=== PATIENT | male | born 1935 | race Caucasian/White ===

== ENCOUNTER 2021-02-16 20:01 | Inpatient (IN) | payer OTHER ==
[~2021-02-16] VITALS: Ht 173 cm; Wt 76.0 kg
[2021-02-16 20:03] VITALS: BP 155/78
[2021-02-16 20:33] LABS: BASO % 0.3 % (0.0-1.0); EOS # 0.1 10*3/uL (0.0-0.4); EOS % 0.8 % (1.0-4.0); HEMATOCRIT 45.9 % (42.0-52.0); LYMPH # 1.3 10*3/uL (1.3-4.4); LYMPH % 12.3 % (27.0-41.0); MEAN CELL VOLUME 90.4 fl (80.0-94.0); MEAN CORPUSCULAR HGB 29.1 pg (27.0-31.0); MEAN CORPUSCULAR HGB CONC 32.2 g/dl (33.0-37.0); MEAN PLATELET VOLUME 10.9 fl (9.6-12.3); MONO # 0.9 10*3/uL (0.1-1.0); MONO % 8.7 % (3.0-9.0); NEUT # 8.1 10*3/uL (2.3-7.9); NEUT % 77.5 % (47.0-73.0); PLATELET COUNT AUTOMATED 194 10*3/uL (130-400); RED BLOOD COUNT 5.08 10*6/uL (4.50-5.90); WHITE BLOOD COUNT 10.5 10*3/uL (4.8-10.8)
[2021-02-16 20:48] LABS: ALBUMIN 3.4 gm/dl (3.1-4.5); ALKALINE PHOSPHATASE 91 U/L (45-117); BUN 36 mg/dl (7-24); CHLORIDE 111 mmol/L (98-107); CREATININE 1.34 mg/dL (0.70-1.30); POTASSIUM 3.9 mmol/L (3.5-5.1); SGOT/AST 16 IU/L (3-35); SGPT/ALT 21 U/L (12-78); SODIUM 140 mmol/L (136-145); TOTAL PROTEIN 7.1 gm/dL (6.4-8.2)
[2021-02-16] MEDS ORDERED: HYDROCHLOROTHIA25 M1 PO (23:32)
[2021-02-16] MEDS ORDERED: COZAAR100 MG PO (23:33)
[2021-02-16] MEDS ORDERED: ZETIA10 MG PO (23:33)
[2021-02-16] MEDS ORDERED: PRAVASTATIN SOD40 MG PO (23:34)
[2021-02-16] MEDS ORDERED: DORZOLAMIDE HYD10 ML OP (23:34)
[2021-02-17] VITALS (7 sets, daily range): BP systolic 107–158; BP diastolic 44–82
[2021-02-17 00:32] LABS: CPK 99 U/L (39-308); LDH 161 U/L (87-241)
[2021-02-17 05:10] LABS: ALBUMIN 3.1 gm/dl (3.1-4.5); ALKALINE PHOSPHATASE 80 U/L (45-117); BUN 32 mg/dl (7-24); CHLORIDE 112 mmol/L (98-107); CREATININE 1.28 mg/dL (0.70-1.30); POTASSIUM 4.2 mmol/L (3.5-5.1); SGOT/AST 15 IU/L (3-35); SODIUM 139 mmol/L (136-145); TOTAL PROTEIN 6.5 gm/dL (6.4-8.2)
[2021-02-17 05:11] LABS: ACT PARTIAL THROMBO TIME 33.7 SECONDS (20.0-32.1); SGPT/ALT 15 U/L (12-78)
[2021-02-17 05:16] LABS: THYROID STIM HORMONE (HS) 0.831 uIU/ml (0.358-4.75)
[2021-02-17 06:37] LABS: BASO % 0.1 % (0.0-1.0); HEMATOCRIT 44.4 % (42.0-52.0); LYMPH # 1.1 10*3/uL (1.3-4.4); LYMPH % 9.8 % (27.0-41.0); MEAN CELL VOLUME 92.1 fl (80.0-94.0); MEAN CORPUSCULAR HGB CONC 31.5 g/dl (33.0-37.0); MEAN PLATELET VOLUME 11.5 fl (9.6-12.3); MONO # 0.6 10*3/uL (0.1-1.0); MONO % 5.1 % (3.0-9.0); NEUT # 9.8 10*3/uL (2.3-7.9); NEUT % 84.7 % (47.0-73.0); PLATELET COUNT AUTOMATED 194 10*3/uL (130-400); RED BLOOD COUNT 4.82 10*6/uL (4.50-5.90); RED CELL DISTRI WIDTH 14.2 % (0-14.5); WHITE BLOOD COUNT 11.6 10*3/uL (4.8-10.8)
[2021-02-18] VITALS: BP 154/72
[2021-02-18 07:30] LABS: BILIRUBIN Negative (Negative); BLOOD 1+ (Negative); CLARITY Clear (Clear); COLOR Yellow (Yellow); GLUCOSE Negative (Negative); KETONE Negative (Negative); LEUKO ESTERASE Negative (Negative); NITRITE Negative (Negative); SPECIFIC GRAVITY >= 1.030 (1.001-1.030); UROBILINOGEN 0.2 E.U./dl (0.0-1.0)
[2021-02-18 07:32] LABS: BASO % 0.2 % (0.0-1.0); EOS % 0.1 % (1.0-4.0); HEMATOCRIT 43.9 % (42.0-52.0); LYMPH # 2.2 10*3/uL (1.3-4.4); LYMPH % 18.5 % (27.0-41.0); MEAN CORPUSCULAR HGB 28.8 pg (27.0-31.0); MEAN PLATELET VOLUME 11.4 fl (9.6-12.3); MONO # 1.1 10*3/uL (0.1-1.0); MONO % 8.8 % (3.0-9.0); NEUT # 8.7 10*3/uL (2.3-7.9); PLATELET COUNT AUTOMATED 201 10*3/uL (130-400); RED BLOOD COUNT 4.72 10*6/uL (4.50-5.90); RED CELL DISTRI WIDTH 14.2 % (0-14.5); WHITE BLOOD COUNT 12.1 10*3/uL (4.8-10.8)
[2021-02-18 07:47] LABS: CREATININE 1.41 mg/dL (0.70-1.30); POTASSIUM 4.1 mmol/L (3.5-5.1); TOTAL PROTEIN 6.7 gm/dL (6.4-8.2)
[2021-02-18 08:00] VITALS: BP 141/80
[2021-02-18 08:03] LABS: BACTERIA 3+
[2021-02-18 12:00] VITALS: BP 134/62
[2021-02-18 16:00] VITALS: BP 157/63
[2021-02-18 20:00] VITALS: BP 143/55; BP 161/74
[2021-02-19] VITALS: BP 153/65
[2021-02-19 06:14] LABS: ALKALINE PHOSPHATASE 67 U/L (45-117); BUN 39 mg/dl (7-24); CHLORIDE 112 mmol/L (98-107); CREATININE 1.24 mg/dL (0.70-1.30); SGOT/AST 27 IU/L (3-35); SGPT/ALT 26 U/L (12-78); SODIUM 142 mmol/L (136-145); TOTAL PROTEIN 6.4 gm/dL (6.4-8.2)
[2021-02-19 06:20] LABS: BASO % 0.1 % (0.0-1.0); HEMATOCRIT 41.2 % (42.0-52.0); LYMPH # 1.9 10*3/uL (1.3-4.4); LYMPH % 20.7 % (27.0-41.0); MEAN CELL VOLUME 90.5 fl (80.0-94.0); MEAN CORPUSCULAR HGB 29.2 pg (27.0-31.0); MEAN CORPUSCULAR HGB CONC 32.3 g/dl (33.0-37.0); MEAN PLATELET VOLUME 11.4 fl (9.6-12.3); MONO # 0.7 10*3/uL (0.1-1.0); MONO % 7.3 % (3.0-9.0); NEUT # 6.6 10*3/uL (2.3-7.9); NEUT % 71.5 % (47.0-73.0); PLATELET COUNT AUTOMATED 203 10*3/uL (130-400); RED BLOOD COUNT 4.55 10*6/uL (4.50-5.90); RED CELL DISTRI WIDTH 14.2 % (0-14.5); WHITE BLOOD COUNT 9.2 10*3/uL (4.8-10.8)
[2021-02-19 08:00] VITALS: BP 149/61
[2021-02-19 12:00] VITALS: BP 143/61
[2021-02-19 16:00] VITALS: BP 165/74
[2021-02-19 20:00] VITALS: BP 146/68
[2021-02-20] VITALS: BP 157/68
[2021-02-20 06:58] LABS: BASO % 0.1 % (0.0-1.0); HEMATOCRIT 43.5 % (42.0-52.0); LYMPH # 1.4 10*3/uL (1.3-4.4); LYMPH % 17.2 % (27.0-41.0); MEAN CELL VOLUME 92.9 fl (80.0-94.0); MEAN CORPUSCULAR HGB 28.8 pg (27.0-31.0); MEAN PLATELET VOLUME 11.5 fl (9.6-12.3); MONO # 0.2 10*3/uL (0.1-1.0); MONO % 2.7 % (3.0-9.0); NEUT # 6.4 10*3/uL (2.3-7.9); NEUT % 79.3 % (47.0-73.0); PLATELET COUNT AUTOMATED 220 10*3/uL (130-400); RED BLOOD COUNT 4.68 10*6/uL (4.50-5.90); RED CELL DISTRI WIDTH 14.1 % (0-14.5); WHITE BLOOD COUNT 8.1 10*3/uL (4.8-10.8)
[2021-02-20 07:16] LABS: CHLORIDE 113 mmol/L (98-107); CREATININE 1.23 mg/dL (0.70-1.30); POTASSIUM 4.6 mmol/L (3.5-5.1); SODIUM 143 mmol/L (136-145)
[2021-02-20 07:32] LABS: BUN 37 mg/dl (7-24); CHOLESTEROL 129 mg/dL (<200); LDL CHOLESTEROL 69 mg/dL (9-159)
[2021-02-20 07:39] LABS: TRIGLYCERIDES 114 mg/dl (<150)
[2021-02-20 08:00] VITALS: BP 100/69
[2021-02-20 09:45] VITALS: BP 140/64
[2021-02-20 12:00] VITALS: BP 110/66
[2021-02-20 16:00] VITALS: BP 155/57
[2021-02-20 20:00] VITALS: BP 161/59
[2021-02-21 00:05] VITALS: BP 126/43
[2021-02-21 07:02] LABS: BASO % 0.2 % (0.0-1.0); HEMATOCRIT 45.1 % (42.0-52.0); LYMPH # 1.4 10*3/uL (1.3-4.4); LYMPH % 15.2 % (27.0-41.0); MEAN CELL VOLUME 90.6 fl (80.0-94.0); MEAN CORPUSCULAR HGB 28.7 pg (27.0-31.0); MEAN CORPUSCULAR HGB CONC 31.7 g/dl (33.0-37.0); MONO # 0.6 10*3/uL (0.1-1.0); NEUT # 7.1 10*3/uL (2.3-7.9); NEUT % 77.2 % (47.0-73.0); PLATELET COUNT AUTOMATED 255 10*3/uL (130-400); RED BLOOD COUNT 4.98 10*6/uL (4.50-5.90); WHITE BLOOD COUNT 9.2 10*3/uL (4.8-10.8)
[2021-02-21 07:20] LABS: POTASSIUM 4.5 mmol/L (3.5-5.1)
[2021-02-21 07:21] LABS: CREATININE 1.39 mg/dL (0.70-1.30)
[2021-02-21 08:00] VITALS: BP 160/67
[2021-02-21 12:00] VITALS: BP 153/83
[2021-02-21 16:00] VITALS: BP 98/40
[2021-02-21 20:45] VITALS: BP 145/81
[2021-02-22] VITALS (9 sets, daily range): BP systolic 93–148; BP diastolic 44–67
[2021-02-22 06:32] LABS: BASO % 0.1 % (0.0-1.0); HEMATOCRIT 35.9 % (42.0-52.0); LYMPH # 1.3 10*3/uL (1.3-4.4); LYMPH % 9.7 % (27.0-41.0); MEAN CORPUSCULAR HGB 29.3 pg (27.0-31.0); MEAN CORPUSCULAR HGB CONC 32.6 g/dl (33.0-37.0); MEAN PLATELET VOLUME 10.9 fl (9.6-12.3); MONO % 7.4 % (3.0-9.0); NEUT # 11.2 10*3/uL (2.3-7.9); NEUT % 81.7 % (47.0-73.0); PLATELET COUNT AUTOMATED 258 10*3/uL (130-400); RED BLOOD COUNT 3.99 10*6/uL (4.50-5.90); RED CELL DISTRI WIDTH 13.8 % (0-14.5); WHITE BLOOD COUNT 13.7 10*3/uL (4.8-10.8)
[2021-02-22 06:47] LABS: POTASSIUM 4.2 mmol/L (3.5-5.1)
[2021-02-22 07:02] LABS: CREATININE 1.77 mg/dL (0.70-1.30)
[2021-02-23] VITALS: BP 133/52
[2021-02-23 06:31] LABS: POTASSIUM 4.3 mmol/L (3.5-5.1)
[2021-02-23 06:32] LABS: BASO % 0.1 % (0.0-1.0); EOS % 0.2 % (1.0-4.0); HEMATOCRIT 30.6 % (42.0-52.0); LYMPH % 15.6 % (27.0-41.0); MEAN CELL VOLUME 90.5 fl (80.0-94.0); MEAN CORPUSCULAR HGB 28.7 pg (27.0-31.0); MEAN CORPUSCULAR HGB CONC 31.7 g/dl (33.0-37.0); MEAN PLATELET VOLUME 11.3 fl (9.6-12.3); MONO # 1.4 10*3/uL (0.1-1.0); MONO % 10.8 % (3.0-9.0); NEUT # 8.9 10*3/uL (2.3-7.9); NEUT % 70.9 % (47.0-73.0); NUCLEATED RED BLOOD CELL 0.2 % (0.0-0.0); PLATELET COUNT AUTOMATED 243 10*3/uL (130-400); RED BLOOD COUNT 3.38 10*6/uL (4.50-5.90); RED CELL DISTRI WIDTH 14.2 % (0-14.5); WHITE BLOOD COUNT 12.6 10*3/uL (4.8-10.8)
[2021-02-23 06:34] LABS: CREATININE 1.73 mg/dL (0.70-1.30)
[2021-02-23 08:00] VITALS: BP 144/65
[2021-02-23] MEDS ORDERED: COZAAR100 MG PO (10:48)
[2021-02-23] MEDS ORDERED: ASPIRIN ADULT L81 M2 PO (10:48)
[2021-02-23] MEDS ORDERED: PREDNISONE10 MG PO (10:48)
[2021-02-23] MEDS ORDERED: METOPROLOL SUCC25 M2 PO (10:48)
[2021-02-23] MEDS ORDERED: PROVENTIL HFA6.7 GM INH (10:48)
[2021-02-23 12:00] VITALS: BP 139/51
== END 2021-02-23 13:00 | disposition home or self-care (01) | DRG 871 ==
LOC: ED 20:01 → EDHOLD 23:37 → 4E 23:37 → EDHOLD 02-19 10:11 → 4E 02-19 10:12
PROVIDERS: Hospitalist; Internal Medicine; Registered Nurse; Student in an Organized Health Care Education/Training Program; ADMIT Internal Medicine; ATTEND Internal Medicine
PROC: 4A02XM4 Measurement of Cardiac Total Activity, External Approach (ICD-10-PCS; principal; 2021-02-21)
PROC: 3E073KZ Introduction of Other Diagnostic Substance into Coronary Artery, Percutaneous Approach (ICD-10-PCS; 2021-02-21)
DX: A41.9 Sepsis, unspecified organism (principal); J15.6 Pneumonia due to other Gram-negative bacteria; N17.0 Acute kidney failure with tubular necrosis; J44.1 Chronic obstructive pulmonary disease with (acute) exacerbation; J44.0 Chronic obstructive pulmonary disease with (acute) lower respiratory infection; I24.8 Other forms of acute ischemic heart disease; Z20.822 Contact with and (suspected) exposure to COVID-19; R73.9 Hyperglycemia, unspecified; E78.2 Mixed hyperlipidemia; D64.9 Anemia, unspecified; N18.9 Chronic kidney disease, unspecified; I12.9 Hypertensive chronic kidney disease with stage 1 through stage 4 chronic kidney disease, or unspecified chronic kidney disease; I35.0 Nonrheumatic aortic (valve) stenosis; Z80.1 Family history of malignant neoplasm of trachea, bronchus and lung; Z83.3 Family history of diabetes mellitus

== ENCOUNTER 2022-08-05 17:40 | Inpatient (IN) | payer OTHER ==
[~2022-08-05] VITALS: Ht 170.2 cm; Wt 73.9 kg
[~2022-08-05 17:40] MED LIST: AMIODARONE HYD200 MG PO; AMLODIPINE BES2.5 MG PO; ASPIRIN ADULT L81 M2 PO; COZAAR100 MG PO; DORZOLAMIDE HYD10 M2 OU; DORZOLAMIDE HYD10 ML OP; DULCOLAX STOOL100 M1 PO; ELIQUIS5 M1 PO; FUROSEMIDE40 MG PO; HYDROCHLOROTHIA25 M1 PO; LATANOPROST2.5 ML OU; METOPROLOL SUCC25 M2 PO; PANTOPRAZOLE SO40 MG PO; PRAVASTATIN SOD40 MG PO; PREDNISONE10 MG PO; PRESERVISION A1 EAC8 PO; PROVENTIL HFA6.7 GM INH; REMERON15 M2 PO; THERA-D100 MCG PO; VAZALORE81 MG PO; ZETIA10 MG PO
== END 2022-08-05 20:47 ==
LOC: 5E 17:40
PROVIDERS: ADMIT Internal Medicine; ATTEND Internal Medicine
DX: I21.4 Non-ST elevation (NSTEMI) myocardial infarction (principal); I50.23 Acute on chronic systolic (congestive) heart failure; N17.0 Acute kidney failure with tubular necrosis; F33.1 Major depressive disorder, recurrent, moderate; E44.0 Moderate protein-calorie malnutrition; I35.2 Nonrheumatic aortic (valve) stenosis with insufficiency; K59.09 Other constipation; E78.2 Mixed hyperlipidemia; I11.0 Hypertensive heart disease with heart failure; Z68.25 Body mass index [BMI] 25.0-25.9, adult